=== PATIENT | female | born 1935 | race Caucasian/White ===

== ENCOUNTER 2024-05-10 21:51 | Inpatient (IN) | payer BC, SELFPAY ==
[~2024-05-10] VITALS: Ht 154.9 cm; Wt 96.3 kg
[2024-05-10 23:51] VITALS: BP 149/57; TEMP 98.1; O2SAT 94
[2024-05-11] MEDS ORDERED: ACETAMINOPHEN TAB 650MG DOSE (2X325MG) PO PRN ×2 (00:25→00:35)
[2024-05-11] MEDS ORDERED: MOM 30ML SUSPENSION UDC PO PRN (00:25)
[2024-05-11] MEDS ORDERED: LEVO25TA5 PO (00:29)
[2024-05-11] MEDS ORDERED: PROP40TA62 PO (00:29)
[2024-05-11] MEDS ORDERED: ATOR1TAB19 PO (00:29)
[2024-05-11] MEDS ORDERED: HOME MED LIST COMPLETE! XX SCH (00:30)
[2024-05-11] MEDS: UNRESOLVED CLARIFICATION ENTRY XX STA (00:46)
[2024-05-11 01:20] LABS: HEMATOCRIT 35.3 % (36.0-47.0); HEMOGLOBIN 11.7 g/dl (12.0-15.5); MEAN CORPUSCULAR HEMOGLOBIN 31.4 pg (27.0-33.0); MEAN CORPUSCULAR HGB CONC 33.1 g/dl (32.0-36.5); MEAN CORPUSCULAR VOLUME 94.6 fl (80.0-96.0); PLATELET COUNT, AUTOMATED 164 10^3/uL (150-450); RED BLOOD COUNT 3.73 10^6/uL (4.00-5.40); WHITE BLOOD COUNT 13.1 10^3/uL (4.0-10.0)
[2024-05-11 01:52] LABS: ALBUMIN 2.9 G/DL (3.2-5.2); BILIRUBIN,TOTAL 1.3 MG/DL (0.3-1.2); CALCIUM LEVEL 8.9 MG/DL (8.3-10.6); CREATININE FOR GFR 1.29 MG/DL (0.55-1.30); GLOMERULAR FILTRATION RATE 41.4 (>32); POTASSIUM SERUM 3.6 MMOL/L (3.5-5.1); TOTAL PROTEIN 5.7 G/DL (5.7-8.2)
[2024-05-11] MEDS: metroNIDAZOLE 500 MG in IV 1 EA IV SCH (03:17)
[2024-05-11 04:00] VITALS: BP 150/60; TEMP 97.5; O2SAT 98
[2024-05-11] MEDS: CIPROFLOXACIN 400 MG in IV 1 EA IV SCH (05:07)
[2024-05-11] MEDS: DOCUSATE SODIUM 100MG CAPSULE PO SCH (08:24)
[2024-05-11 12:00] VITALS: BP 134/76; TEMP 97.9; O2SAT 97
[2024-05-11 12:09] LABS: C REACTIVE PROTEIN QUANTITATIV 8.4 MG/DL (<1.0)
[2024-05-11] MEDS: IPRATROPIUM 0.5MG/ALBUTEROL 2.5MG INH SOL UD 3ML (DUONEB) NEB SCH (12:55)
[2024-05-11 20:00] VITALS: BP 132/76; TEMP 97.9; O2SAT 97
[2024-05-12 04:00] VITALS: BP 127/69; TEMP 97.6; O2SAT 96
[2024-05-12 06:37] LABS: HEMATOCRIT 36.5 % (36.0-47.0); HEMOGLOBIN 11.8 g/dl (12.0-15.5); MEAN CORPUSCULAR HEMOGLOBIN 30.3 pg (27.0-33.0); MEAN CORPUSCULAR HGB CONC 32.3 g/dl (32.0-36.5); MEAN CORPUSCULAR VOLUME 93.6 fl (80.0-96.0); PLATELET COUNT, AUTOMATED 158 10^3/uL (150-450); WHITE BLOOD COUNT 10.4 10^3/uL (4.0-10.0)
[2024-05-12 06:58] LABS: CALCIUM LEVEL 8.5 MG/DL (8.3-10.6); CREATININE FOR GFR 1.22 MG/DL (0.55-1.30); GLOMERULAR FILTRATION RATE 44.2 (>32); POTASSIUM SERUM 3.7 MMOL/L (3.5-5.1)
[2024-05-12 09:30] LABS: C REACTIVE PROTEIN QUANTITATIV 7.8 MG/DL (<1.0); MAGNESIUM LEVEL 1.8 MG/DL (1.8-2.4)
[2024-05-12 09:56] VITALS: BP 122/74
[2024-05-12] MEDS: POTASSIUM CHLORIDE 10MEQ SR TABLET PO SCH (09:59)
[2024-05-12] MEDS: LEVOTHYROXINE 25MCG TABLET (0.025MG) PO SCH (09:59)
[2024-05-12] MEDS: PROPRANOLOL 20 MG TAB PO SCH (10:00)
[2024-05-12 12:00] VITALS: BP 123/73; TEMP 98.2; O2SAT 96
[2024-05-12 21:23] VITALS: BP 140/76; TEMP 97.9; O2SAT 94
[2024-05-13 05:14] VITALS: BP 140/60; TEMP 97.9; O2SAT 95
[2024-05-13 05:56] LABS: BASO % 0.4 % (0.0-1.0); EOS # 0.2 10^3/uL (0.0-0.5); EOS % 2.1 % (0.0-3.0); HEMATOCRIT 39.3 % (36.0-47.0); HEMOGLOBIN 12.8 g/dl (12.0-15.5); LYMPH # 1.2 10^3/uL (1.5-5.0); LYMPH % 10.9 % (24.0-44.0); MEAN CORPUSCULAR HEMOGLOBIN 30.5 pg (27.0-33.0); MEAN CORPUSCULAR HGB CONC 32.6 g/dl (32.0-36.5); MEAN CORPUSCULAR VOLUME 93.6 fl (80.0-96.0); MONO # 0.9 10^3/uL (0.0-0.8); MONO % 7.8 % (2.0-8.0); NEUTROPHILS # 8.9 10^3/uL (1.5-8.5); NEUTROPHILS % 78.4 % (36.0-66.0); PLATELET COUNT, AUTOMATED 187 10^3/uL (150-450); WHITE BLOOD COUNT 11.3 10^3/uL (4.0-10.0)
[2024-05-13 06:19] LABS: C REACTIVE PROTEIN QUANTITATIV 5.7 MG/DL (<1.0)
[2024-05-13 06:21] LABS: CALCIUM LEVEL 8.7 MG/DL (8.3-10.6); CREATININE FOR GFR 1.26 MG/DL (0.55-1.30); GLOMERULAR FILTRATION RATE 42.6 (>32); MAGNESIUM LEVEL 1.8 MG/DL (1.8-2.4); POTASSIUM SERUM 3.6 MMOL/L (3.5-5.1)
[2024-05-13 08:45] VITALS: BP 139/66; TEMP 98.2; O2SAT 95
[2024-05-13 11:30] VITALS: BP 130/66; TEMP 98.8; O2SAT 95
[2024-05-13] MEDS ORDERED: CIPROFLOXACIN 400 MG in IV 1 EA IV SCH (18:00)
[2024-05-13] MEDS: metroNIDAZOLE (FLAGYL) 500MG TABLET PO SCH (18:27)
[2024-05-13] MEDS: CIPROFLOXACIN 500MG TABLET PO SCH (18:27)
[2024-05-13 20:00] VITALS: BP 128/62; TEMP 97.7; O2SAT 98
[2024-05-14 04:00] VITALS: BP 132/62; TEMP 97.7; O2SAT 96
[2024-05-14 07:21] LABS: BASO # 0.1 10^3/uL (0.0-0.2); BASO % 0.9 % (0.0-1.0); EOS # 0.3 10^3/uL (0.0-0.5); EOS % 3.6 % (0.0-3.0); HEMATOCRIT 38.5 % (36.0-47.0); HEMOGLOBIN 12.7 g/dl (12.0-15.5); LYMPH # 2.2 10^3/uL (1.5-5.0); MEAN CORPUSCULAR HEMOGLOBIN 30.5 pg (27.0-33.0); MEAN CORPUSCULAR VOLUME 92.5 fl (80.0-96.0); MONO # 0.9 10^3/uL (0.0-0.8); MONO % 10.7 % (2.0-8.0); NEUTROPHILS # 4.6 10^3/uL (1.5-8.5); NEUTROPHILS % 57.1 % (36.0-66.0); PLATELET COUNT, AUTOMATED 198 10^3/uL (150-450); RED BLOOD COUNT 4.16 10^6/uL (4.00-5.40)
[2024-05-14 07:45] LABS: CALCIUM LEVEL 8.9 MG/DL (8.3-10.6); CREATININE FOR GFR 1.2 MG/DL (0.55-1.30); MAGNESIUM LEVEL 1.9 MG/DL (1.8-2.4); POTASSIUM SERUM 3.7 MMOL/L (3.5-5.1)
[2024-05-14 08:03] VITALS: BP 136/64
[2024-05-14 12:00] VITALS: BP 145/70; TEMP 97.5; O2SAT 95
[2024-05-14] MEDS ORDERED: CIPR500T39 PO (13:37)
[2024-05-14] MEDS ORDERED: METR-265 PO (13:37)
== END 2024-05-14 14:53 | disposition home or self-care (01) | DRG 244 ==
LOC: M ED INP 05-11 00:23 → M MSPAV 05-11 00:35
PROVIDERS: ADMIT Student in an Organized Health Care Education/Training Program; ATTEND Internal Medicine
DX: K57.32 Diverticulitis of large intestine without perforation or abscess without bleeding (principal); A04.8 Other specified bacterial intestinal infections; K56.7 Ileus, unspecified; N28.1 Cyst of kidney, acquired; F03.90 Unspecified dementia, unspecified severity, without behavioral disturbance, psychotic disturbance, mood disturbance, and anxiety; N18.30 Chronic kidney disease, stage 3 unspecified; I12.9 Hypertensive chronic kidney disease with stage 1 through stage 4 chronic kidney disease, or unspecified chronic kidney disease; E78.5 Hyperlipidemia, unspecified; E03.9 Hypothyroidism, unspecified; G25.0 Essential tremor; Z90.49 Acquired absence of other specified parts of digestive tract; Z79.890 Hormone replacement therapy; Z79.899 Other long term (current) drug therapy; Z88.2 Allergy status to sulfonamides; Z88.5 Allergy status to narcotic agent